=== PATIENT | male | born 1945 | race Caucasian/White ===

== ENCOUNTER 2020-11-19 01:41 | Emergency (ER) | payer MEDICARE ==
[2020-11-19 02:09] VITALS: BP 146/97; PULSE 105; RESP 20; TEMP 97.6
[2020-11-19] MEDS ORDERED: SODIUM CHLORIDE 0.9% 500 ML 500 ML IV ONE (02:11)
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
--- NOTE | 2020-11-19 03:01 | XR ---
EXAM: XR Left Wrist Complete, 3 or More Views CLINICAL HISTORY: ITS.REASON XR Reason: wrist pain TECHNIQUE: Frontal, lateral and oblique views of the left wrist. COMPARISON: No relevant prior studies available. FINDINGS: Bones/joints: Age-indeterminate irregularity of the distal radius and ulna. Soft tissues: Punctate calcific opacity in the distal forearm. IMPRESSION: Age-indeterminate irregularity of the distal radius and ulna. Correlate with focal tenderness and prior imaging if available.
[2020-11-19 03:23] LABS: Basophils # (A) 0.1 k/uL (0-0.2); Basophils % (A) 0 %; Eosinophils # (A) 0.2 k/uL (0-0.7); Eosinophils % (A) 1 %; HCT 42.4 % (39.0-53.0); HGB 13.6 gm/dL (13.0-17.5); Lymphocytes # (A) 1.7 k/uL (1.0-4.8); Lymphocytes % (A) 14 %; MCH 26.3 pg (25.0-35.0); MCV 82.4 fL (80.0-100.0); Mean Platelet Volume 10.2; Monocytes # (A) 0.8 k/uL (0-1.0); Monocytes % (A) 6 %; Neutrophils # (A) 9.7 k/uL (1.3-7.7); Neutrophils % (A) 77 %; Platelet Count 147 k/uL (150-450); RBC 5.15 m/uL (4.30-5.90); WBC 12.6 k/uL (3.8-10.6)
[2020-11-19 03:41] LABS: ALT 11 U/L (4-49); AST 25 U/L (17-59); African American GFR (CKD) 75 (>60 ml/min/1.73 sqM); Albumin 3.9 g/dL (3.5-5.0); Alcohol <10 mg/dL; Alkaline Phosphatase 53 U/L (38-126); Anion Gap 9 mmol/L; Blood Urea Nitrogen 31 mg/dL (9-20); Calcium 9.1 mg/dL (8.4-10.2); Carbon Dioxide 24 mmol/L (22-30); Chloride 105 mmol/L (98-107); Glucose 302 mg/dL (74-99); Magnesium 1.7 mg/dL (1.6-2.3); Non-African American GFR(CKD) 65 (>60 ml/min/1.73 sqM); Sodium 138 mmol/L (137-145); Total Bilirubin 0.4 mg/dL (0.2-1.3); Total Protein 6.5 g/dL (6.3-8.2)
== END 2020-11-19 07:21 | disposition home or self-care (01) ==
LOC: EC 01:41
DX: F43.20 Adjustment disorder, unspecified (principal); F03.90 Unspecified dementia, unspecified severity, without behavioral disturbance, psychotic disturbance, mood disturbance, and anxiety; S60.812A Abrasion of left wrist, initial encounter; Z87.891 Personal history of nicotine dependence; Z88.0 Allergy status to penicillin; Z91.018 Allergy to other foods; X58.XXXA Exposure to other specified factors, initial encounter
CPT/HCPCS: 99285 ×2; 82075; 80053; 82009; 83735; 85025; 73110; G0480; 80320